=== PATIENT | female | born 1940 | race Caucasian/White ===

== ENCOUNTER → 2017-04-04 | Outpatient (CLI) | payer MEDICARE ==
[~2017-04-04] VITALS: Ht 162.6 cm; Wt 96.2 kg
[~2017-04-04] MED LIST: ACID CONTROL150 MG PO; DILTIAZEM 24HR360 MG PO; ELIQUIS5 MG PO; HYDROCHLOROTHIA25 MG PO; LIPITOR TAB 1010 MG PO; LISINOPRIL10 MG PO; PREMARIN1.25 MG PO; SERAX PO
[2017-04-04 08:37] LABS: HEMOGLOBIN 10.3 gm/dl (12.3-15.3); RED BLOOD COUNT 4.35 M/UL (4.00-5.10); WHITE BLOOD COUNT 5.2 K/UL (4.5-11.0)
== END ==
LOC: CT 07:01
PROVIDERS: Radiology Diagnostic Radiology
PROC: 0BBG3ZX Excision of Left Upper Lung Lobe, Percutaneous Approach, Diagnostic (ICD-10-PCS; principal; 2017-04-04)
DX: R91.8 Other nonspecific abnormal finding of lung field (principal)
CPT/HCPCS: 36415; 77012; 85027; 85610; 88341; 88342

== ENCOUNTER → 2017-04-22 | Outpatient (CLI) | payer MEDICARE | LOC: KOH-I 08:30 | DX: R91.1 Solitary pulmonary nodule (principal); R91.8 Other nonspecific abnormal finding of lung field; E04.1 Nontoxic single thyroid nodule; C34.11 Malignant neoplasm of upper lobe, right bronchus or lung | CPT/HCPCS: 70470; Q9962 ==

== ENCOUNTER → 2021-02-01 | Outpatient (CLI) | payer MEDICARE ==
[~2021-02-01] MED LIST changes: +ATORVASTATIN CA10 MG PO; +DILTIAZEM HCL ER PO; +FERROUS SULFAT325 MG PO; +MS CONTIN TAB S30 MG PO; +NORCO 5-325 TA1 EACH PO; +OXAZEPAM10 MG PO; +RANITIDINE HCL150 MG PO
[2021-02-01 11:19] LABS: HEMOGLOBIN 13.6 gm/dl (12.3-15.3); RED BLOOD COUNT 4.31 M/UL (4.00-5.10); WHITE BLOOD COUNT 6.1 K/UL (4.5-11.0)
[2021-02-01 11:40] LABS: BUN/CREATININE RATIO 34 (0-10)
== END ==
LOC: CT 10:30
PROVIDERS: Internal Medicine Hematology & Oncology
DX: C34.12 Malignant neoplasm of upper lobe, left bronchus or lung (principal); E04.1 Nontoxic single thyroid nodule; R91.8 Other nonspecific abnormal finding of lung field; J90 Pleural effusion, not elsewhere classified
CPT/HCPCS: 71260; 80048; 85027; Q9963

== ENCOUNTER → 2021-04-03 | Outpatient (CLI) | payer MEDICARE | LOC: CT 08:00 | DX: R91.8 Other nonspecific abnormal finding of lung field (principal); E04.1 Nontoxic single thyroid nodule; C34.12 Malignant neoplasm of upper lobe, left bronchus or lung; K74.60 Unspecified cirrhosis of liver; M89.8X2 Other specified disorders of bone, upper arm; S42.202D Unspecified fracture of upper end of left humerus, subsequent encounter for fracture with routine healing; X58.XXXD Exposure to other specified factors, subsequent encounter | CPT/HCPCS: 36415; 71260; 73201; 82565; Q9967 ==

== ENCOUNTER → 2021-07-20 | Outpatient (CLI) | payer MEDICARE ==
[2021-07-20 10:50] LABS: RED BLOOD COUNT 4.4 M/UL (4.00-5.10); WHITE BLOOD COUNT 5.7 K/UL (4.5-11.0)
[2021-07-20 11:13] LABS: BUN/CREATININE RATIO 18 (0-10)
== END ==
LOC: CT 10:00
PROVIDERS: Internal Medicine Hematology & Oncology
DX: R91.1 Solitary pulmonary nodule (principal); R91.8 Other nonspecific abnormal finding of lung field; E04.1 Nontoxic single thyroid nodule; C34.12 Malignant neoplasm of upper lobe, left bronchus or lung; E07.9 Disorder of thyroid, unspecified; J90 Pleural effusion, not elsewhere classified
CPT/HCPCS: 36415; 71260; 80053; 85025; Q9967

== ENCOUNTER → 2021-07-27 | Outpatient (CLI) | payer MEDICARE ==
[2021-07-27 11:04] LABS: HEMOGLOBIN 14.3 gm/dl (12.3-15.3); RED BLOOD COUNT 4.54 M/UL (4.00-5.10); WHITE BLOOD COUNT 5.1 K/UL (4.5-11.0)
[2021-07-27 14:01] LABS: BODY FLUID SOURCE PLEURAL; MONONUCLEAR CELLS 98 %; POLYMORPHONUCLEAR 2 %; RBC (AUTOMATED) 2100 10^6; WBC (AUTOMATED) 715 10^3
== END ==
LOC: US 10:16
PROVIDERS: Internal Medicine Hematology & Oncology; Radiology Diagnostic Radiology
PROC: 0W9B30Z Drainage of Left Pleural Cavity with Drainage Device, Percutaneous Approach (ICD-10-PCS; principal; 2021-07-27)
DX: C34.12 Malignant neoplasm of upper lobe, left bronchus or lung (principal); J91.0 Malignant pleural effusion; E04.1 Nontoxic single thyroid nodule; J94.8 Other specified pleural conditions; Z95.1 Presence of aortocoronary bypass graft
CPT/HCPCS: 36415; 71045; 85027; 85610; 85730; 89051; G0463

== ENCOUNTER → 2021-08-23 | Outpatient (CLI) | payer MEDICARE | LOC: KOH-I 15:30 | DX: M51.27 Other intervertebral disc displacement, lumbosacral region (principal); M51.36 Other intervertebral disc degeneration, lumbar region; M51.37 Other intervertebral disc degeneration, lumbosacral region; M48.061 Spinal stenosis, lumbar region without neurogenic claudication | CPT/HCPCS: 72131 ==

== ENCOUNTER → 2022-02-23 | Outpatient (CLI) | payer MEDICARE | END | disposition home or self-care (01) | LOC: RAD 07:19 | PROC: 009U3ZZ Drainage of Spinal Canal, Percutaneous Approach (ICD-10-PCS; principal; 2022-02-23) | PROC: B01B1ZZ Fluoroscopy of Spinal Cord using Low Osmolar Contrast (ICD-10-PCS; 2022-02-23) | DX: M51.36 Other intervertebral disc degeneration, lumbar region (principal); M48.061 Spinal stenosis, lumbar region without neurogenic claudication | CPT/HCPCS: 36415; 72132; 82565; 84520; 85049; 85610; Q9966 ==

== ENCOUNTER 2022-03-08 21:14 | Inpatient (IN) | payer MEDICARE ==
[~2022-03-08] VITALS: Ht 162.6 cm; Wt 76.2 kg
[~2022-03-08 21:14] MED LIST changes: -ATORVASTATIN CA10 MG PO; -DILTIAZEM HCL ER PO
[2022-03-09] MEDS ORDERED: FUROSEMIDE20 MG PO (00:40)
[2022-03-09] MEDS ORDERED: METOPROLOL SUCC50 MG PO (00:40)
[2022-03-09] MEDS ORDERED: VITAMIN C500 M4 PO (00:41)
[2022-03-09] MEDS ORDERED: VITAMIN D21250 MCG PO (00:41)
[2022-03-09] MEDS ORDERED: NEURONTIN300 MG PO (00:42)
[2022-03-09] MEDS ORDERED: HYDROCODON-ACE1 EAC4 PO (00:42)
[2022-03-09] MEDS ORDERED: POTASSIUM CHLO10 ME1 PO (00:42)
[2022-03-09] MEDS ORDERED: PROAIR HFA8.5 GM INH (00:44)
[2022-03-09 02:39] LABS: HEMOGLOBIN 13.8 gm/dl (12.3-15.3); RED BLOOD COUNT 4.49 M/UL (4.00-5.10); WHITE BLOOD COUNT 7.8 K/UL (4.5-11.0)
[2022-03-09] MEDS ORDERED: ATORVASTATIN CA10 MG PO (08:26)
[2022-03-09] MEDS ORDERED: DILTIAZEM 24HR180 M1 PO (08:28)
[2022-03-09] MEDS ORDERED: ELIQUIS5 MG PO (08:29)
[2022-03-09] MEDS ORDERED: ACETAMINOPHEN500 MG PO (09:30)
[2022-03-10 14:03] LABS: BODY FLUID SOURCE PLEURAL
[2022-03-10 14:04] LABS: MONONUCLEAR CELLS 67 (75-100); POLYMORPHONUCLEAR % 33 (0-25); RBC (AUTOMATED) 46200 (0-100000); WBC (AUTOMATED) 81 (0-500)
[2022-03-10 14:05] LABS: AMYLASE, BODY FLUID 68 U/L
[2022-03-11 14:46] LABS: BODY FLUID SOURCE PLEURAL; MONONUCLEAR CELLS 74.5 (75-100); POLYMORPHONUCLEAR % 25.5 (0-25); RBC (AUTOMATED) 4400 (0-100000); WBC (AUTOMATED) 722 (0-500)
[2022-03-11 15:17] LABS: AMYLASE, BODY FLUID 24 U/L; LDH, BODY FLUID 203 U/L; TOTAL PROTEIN, BODY FLUID 1.9 gm/dL
[2022-03-11 15:30] LABS: LDH, BODY FLUID 527 U/L
--- NOTE | 2022-03-11 19:17 | NUR ---
THORACENTSIS DONE PER DR PARNELL WITH APPROXIMATELY 700CC OF FLUID REMOVED. SAMPLES SENT TO LAB PER ORDERS.
--- NOTE | 2022-03-13 16:33 | NUR ---
1247 Summoned to patient's room per ROLLING CHAIR PUSHER, patient had no audible heart beat nor respirations. Family members at bedside. 1300 Dr Nicholson informed of patient's . 1340 KAV[facility] called. Patient ruled out for organ donation by Adri Haley, #[id number]. 1340 Family at bedside requested to spend time with patient. 1520 Patient bathed & dressed for home. 1550 [facility] to orange picking supervisor body. 1630 Body removed [facility].
== END 2022-03-13 12:47 | disposition expired | DRG 947 ==
LOC: MED SURG 4 21:14
PROVIDERS: Internal Medicine; ADMIT Internal Medicine
PROC: 0W9B3ZZ Drainage of Left Pleural Cavity, Percutaneous Approach (ICD-10-PCS; principal; 2022-03-10)
PROC: 0W993ZZ Drainage of Right Pleural Cavity, Percutaneous Approach (ICD-10-PCS; 2022-03-11)
DX: G89.3 Neoplasm related pain (acute) (chronic) (principal); R53.2 Functional quadriplegia; J18.9 Pneumonia, unspecified organism; J96.91 Respiratory failure, unspecified with hypoxia; C34.91 Malignant neoplasm of unspecified part of right bronchus or lung; Z20.822 Contact with and (suspected) exposure to COVID-19; M84.559A Pathological fracture in neoplastic disease, hip, unspecified, initial encounter for fracture; C79.51 Secondary malignant neoplasm of bone; C78.6 Secondary malignant neoplasm of retroperitoneum and peritoneum; I50.32 Chronic diastolic (congestive) heart failure; N17.9 Acute kidney failure, unspecified; J91.0 Malignant pleural effusion; N39.0 Urinary tract infection, site not specified; M84.550A Pathological fracture in neoplastic disease, pelvis, initial encounter for fracture; I48.0 Paroxysmal atrial fibrillation; I11.0 Hypertensive heart disease with heart failure; I25.10 Atherosclerotic heart disease of native coronary artery without angina pectoris; K74.60 Unspecified cirrhosis of liver; E86.0 Dehydration; E83.52 Hypercalcemia; B96.20 Unspecified Escherichia coli [E. coli] as the cause of diseases classified elsewhere; M19.91 Primary osteoarthritis, unspecified site; Z66 Do not resuscitate; Z79.01 Long term (current) use of anticoagulants; Z92.21 Personal history of antineoplastic chemotherapy; Z79.899 Other long term (current) drug therapy; Z82.49 Family history of ischemic heart disease and other diseases of the circulatory system; Z95.0 Presence of cardiac pacemaker; Z87.891 Personal history of nicotine dependence; Z51.5 Encounter for palliative care
CPT/HCPCS: 36415; 71045; 80053; 82150; 82550; 82553; 82945; 83615; 83735; 83970; 83986; 84100; 84157; 84484; 85027; 85652; 86140; 87070; 87077; 87086; 87186; 87205; 88341; 88342; 89051; 93005; 94640; 94664; 94760; C9113; J0696; J2060; J2270